=== PATIENT | female | born 1930 | race Two or more races ===

== ENCOUNTER 2017-03-11 10:00 | Outpatient (RCR) ==
--- NOTE | 2017-02-25 16:45 | RS.OPPTEV2 ---
Date of Note: 02/24/17 Visit #: 1 Date of Evaluation: 02/24/17 Payer Source: MEDICARE Treatment Diagnosis: Back pain History of Condition/Mechanism of Injury:: Patient reports a history of back problems. Her daughter describes spinal problems from . States she has episodes to where she gets down in her back and can hardly walk. Functional Limitations: Self Care, ADL's, Sitting, Standing, Ambulation, Community Access/Integration Current Subjective/complaints:: Patient states she has a 86 year old back and she's probably going to have pain. Patient's daughter teases that she (the patient) is here under protest. States she cannot get a CT scan of her spine until she has Physical Therapy. Reports progressive back pain for years. Patient states it is arthritis and degeneration. States standing and walking cause the most pain. She takes a muscle relaxant to sleep at night. Daughter states she has a walker at home, but patient states it is too much trouble to use. Patient reports standing >5-10 mins, her back will be "tied up in knots". States pain is in the center of the low back. She denies any tingling or numbness in the LE's. States she has to sleep on the right side. Reports ADL' s that require standing, such as cooking, are limited. She has to sit to complete many tasks due to increased back pain. Medical History Medical History: Hypertension, Arthritis Smoking Status: Never smoker Hx Home Medications: Protonix, Diclofenac, pravastatin, Meclizine PRN, Acetaminophen Patient's Goals: She wants to have less back pain. Pain Assessment - Pain Description Pain Location: center of low back Pain Description: Aching Current Pain Intensity: not quantified Worst Pain Intensity: not quantified Functional Outcome Measure Oswestry LBP: 58 - G Codes & Severity Modifier G Codes & Modifier: Mobility current CK. Mobility goal CJ Source of G Code score: Oswestry LBP scale. Observation - Observation Posture: Forward Head, Rounded Shoulders, Increased Thoracic Kyphosis, Decreased Lumbar Lordosis, Posterior Pelvic Tilt Gait - Gait Pattern Gait Comments: Patient ambulates without an assistive device independently in the department. Demonstrates a flexed forward posture and guarded mobility. General Range of Motion: Bilateral LE AROM is WFL's. Lumbar AROM is 50% of normal range. Muscle Strength: Bilateral LE strength is grossly 4/5. Trunk strength 4-/5. - Special Tests LISA Test: Negative Left, Negative Right SLR Test: Negative Left, Negative Right Seated Dural Stretch Test: Negative Left, Negative Right SI Joint Compression: Negative SI Joint Distraction: Negative Palpation Comments:: Patient reports no significant tenderness along the lumbar spine or lumbar paraspinals. Denies pain with palpation to the SI joints or with anterior pressure to the sacrum. Sensation - Sensation Right Lower Extremity: Intact/Normal Left Lower Extremity: Intact/Normal Balance - Sitting Balance Static Sitting Balance: Good Dynamic Sitting Balance: Good - Standing Balance Static Standing Balance: Good Dynamic Standing Balance: Fair (+) Additional Comments: Additional Comments: SLR in supine to 60-65 degrees bilaterally. Interventions - Exercise/Activities/Manual Therapy Exercises/Activities: No exercises started today. Discussed the benefit of strengthening exercises for the spine to help improve stability and decrease pain. Manual Therapy: NA - Charges Total Direct Minutes: 50 mins Total Treatment Time: 50 mins Procedures billed for this date of service:: EVAL Low Assessment Assessment: Patient presents to therapy with a diagnosis of back pain. She reports progressive low back pain that is worse with standing and walking. Patient reports no increase or reproduction of pain during the evaluation today. She expresses annoyance with being sent for therapy and does not feel there will be much benefit. She demonstrates potential to benefit from LE and core strengthening to help decrease her pain and improve her tolerance for activities. Patient Education: Education of diagnosis, Body/Joint mechanics, Education of Plan of Care Rehab Potential: Good Short Term Goals Goal #1: Patient compliant and independent in HEP. Goal to be met by: 03/07/17 Goal #2: Trunk strength 4/5. Goal to be met by: 03/11/17 Goal #3: Bilateral hip flexion strength 4+/5. Goal to be met by: 03/11/17 Psychology Professor Goals Goal #1: Pt knows HEP and to continue ex's to maintain functional level at D/C. Goal to be met by: 04/06/17 Goal #2: Score on Oswestry LBP scale improved to 48. Goal to be met by: 04/06/17 Goal #3: Pt to amb. community distances with minimal to mod. low back pain. Goal to be met by: 04/06/17 Goal #4: Pt to tolerate standing to perform ADL's with minimal low back pain. Goal to be met by: 04/06/17 Plan - Treatment to be Provided Procedures: Therapeutic Exercises, Therapeutic Activity, Patient Education Modalities: Hot Packs (prior to exercises if necessary) - Treatment Plan Frequency: 2-3 X week Duration: 4 weeks ORDER # VISITS AND/OR THROUGH DATE: 04/06/17 - Treatment Code (1) Low back pain Qualifiers: Chronicity: chronic Back pain laterality: unspecified Sciatica presence: unspecified whether sciatica present Qualified Description: Chronic low back pain, unspecified back pain laterality, with sciatica presence unspecified Qualifier Code(s): (M54.5) Low back pain, (G89.29) Other chronic pain (2) Impaired mobility and activities of daily living Comments: Z74.09
--- NOTE | 2017-02-26 10:22 | RS.OPPTDN ---
Subjective Date of Note: 02/26/17 Visit #: 2 Date of Evaluation: 02/24/17 Payer Source: MEDICARE Treatment Diagnosis: Back pain Current Subjective/complaints:: Patient reports no pain during exercises. States she doesn't think she needs this. Patient states she and her daughter went to [place] yesterday to shop. States they walked and sat to rest often. Pain Assessment - Pain Description Pain Location: center of low back Pain Description: Aching Current Pain Intensity: not quantified Interventions - Exercise/Activities/Manual Therapy Exercises/Activities: Patient assisted with stretching to bilateral HS and into trunk rotation. Performed exercises of isometric hip flexion, trunk rotation, hip adduction, and hip abduction 2 sets of 5 reps. Performed SLR with light assist, 2 sets of 5 reps each. Total minutes of Exercise: 25 mins Manual Therapy: NA HOME EXERCISE PROGRAM: None given at this time - Charges Total Direct Minutes: 25 mins Total Treatment Time: 25 mins Procedures billed for this date of service:: EX2 Assessment: Patient states again that she doesn't think she needs to be here. She is pleasant and cooperative throughout the exercises. She demonstrates the need for continued strengthening for spinal stabilization. Short Term Goals Goal #1: Patient compliant and independent in HEP. Goal to be met by: 03/07/17 Goal #2: Trunk strength 4/5. Goal to be met by: 03/11/17 Goal #3: Bilateral hip flexion strength 4+/5. Goal to be met by: 03/11/17 Intermediate Goals Goal #1: Pt knows HEP and to continue ex's to maintain functional level at D/C. Goal to be met by: 04/06/17 Goal #2: Score on Oswestry LBP scale improved to 48. Goal to be met by: 04/06/17 Goal #3: Pt to amb. community distances with minimal to mod. low back pain. Goal to be met by: 04/06/17 Goal #4: Pt to tolerate standing to perform ADL's with minimal low back pain. Goal to be met by: 04/06/17 Plan PLAN OF CARE EXPIRES ON:: 04/06/17 ORDER # VISITS AND/OR THROUGH DATE: 04/06/17 PLAN: Progress Exercises
--- NOTE | 2017-03-04 11:13 | RS.OPPTDN ---
Subjective Date of Note: 03/04/17 Visit #: 3 Date of Evaluation: 02/24/17 Payer Source: MEDICARE Treatment Diagnosis: Back pain Current Subjective/complaints:: Patient reports maybe being a slight bit sore after last therapy session. Pain Assessment - Pain Description Pain Location: center of low back Pain Description: Aching Current Pain Intensity: not quantified Interventions - Exercise/Activities/Manual Therapy Exercises/Activities: Patient assisted with stretching to bilateral HS and into trunk rotation. Performed exercises of isometric hip flexion, trunk rotation, hip adduction, and hip abduction 1 set of 10 reps. Performed SLR with light assist, 1 set of 5 reps. Patient reports feeling strain in hips and thighs with SLR---modified SLR to hooklying leg raise. Bridging 2 sets of 5 reps. Controlled lower trunk rotation X 8 reps. Performed bilateral shoulder flexion with 2# wand in hooklying X 10 reps, then 1# wand shoulder flexion with alternate hip flexion w/ 1.5# on each ankle X 10 reps. Added resisted hip abduction with green theraband X 8 reps. Patient instructed in resisted hip abduction, hip flexion isometric, and alternate arm and leg raises in hooklying for HEP. Total minutes of Exercise: X31 mins Manual Therapy: NA HOME EXERCISE PROGRAM: resisted hip abduction, hip flexion isometric, and alternate arm and leg raises in hooklying - Charges Total Direct Minutes: 31 mins Total Treatment Time: 31 mins Procedures billed for this date of service:: EX2 Assessment: Patient tolerates all exercises and is cooperative during therapy. She should benefit from performing exercises at home, along with attending therapy to improved strength along her spine and improve her tolerance with standing activities and walking. Patient Education: Education of diagnosis, Body/Joint mechanics, Home Exercise Program Short Term Goals Goal #1: Patient compliant and independent in HEP. Goal to be met by: 03/07/17 Goal #2: Trunk strength 4/5. Goal to be met by: 03/11/17 Goal #3: Bilateral hip flexion strength 4+/5. Goal to be met by: 03/11/17 Half-Way Goals Goal #1: Pt knows HEP and to continue ex's to maintain functional level at D/C. Goal to be met by: 04/06/17 Goal #2: Score on Oswestry LBP scale improved to 48. Goal to be met by: 04/06/17 Goal #3: Pt to amb. community distances with minimal to mod. low back pain. Goal to be met by: 04/06/17 Goal #4: Pt to tolerate standing to perform ADL's with minimal low back pain. Goal to be met by: 04/06/17 Plan PLAN OF CARE EXPIRES ON:: 04/06/17 ORDER # VISITS AND/OR THROUGH DATE: 04/06/17 PLAN: Continue Plan of Care
--- NOTE | 2017-03-07 16:12 | RS.OPPTDN ---
Subjective Date of Note: 03/07/17 Visit #: 4 Date of Evaluation: 02/24/17 Payer Source: MEDICARE Treatment Diagnosis: Back pain Current Subjective/complaints:: Patient states she has not performed the exercises she was given for HEP on last visit. States she bought a copper back support and feels like it helps her back when walking. Admits that she feels she is able to walk further without as much discomfort, and states this was before buying the support. Pain Assessment - Pain Description Pain Location: center of low back Pain Description: Aching Current Pain Intensity: not quantified Interventions - Exercise/Activities/Manual Therapy Exercises/Activities: Patient assisted with stretching to bilateral HS and into trunk rotation. Performed exercises of isometric hip flexion, trunk rotation, hip adduction, and hip abduction 2 set of 10 reps. Performed SLR with light assist, 2 sets of 5 reps. Bridging 2 sets of 5 reps. Controlled lower trunk rotation X 8 reps. Performed bilateral shoulder flexion with 2# wand in hooklying X 10 reps, then 1# wand shoulder flexion with alternate hip flexion w / 1.5# on each ankle X 10 reps. Performed resisted hip abduction with green theraband 2 sets of 10 reps. Reviewed resisted hip abduction, hip flexion isometric, and alternate arm and leg raises in hooklying for HEP. Total minutes of Exercise: 35 mins Manual Therapy: NA HOME EXERCISE PROGRAM: resisted hip abduction, hip flexion isometric, and alternate arm and leg raises in hooklying - Charges Total Direct Minutes: 35 mins Total Treatment Time: 35 mins Procedures billed for this date of service:: EX2 Assessment: Patient did not try HEP since given to her on her last visit. Explained to her the need for her to work on strengthening consistently, along with attending therapy for the best results. She reluctantly admits that she does feel that she has been able to walk farther without her back bothering her as much. She demonstrates potential to gain increased trunk and and hip strength to provide increased spinal stability to enable her to stand and walk with less pain. Patient demonstrates compliance with HEP?: No Short Term Goals Goal #1: Patient compliant and independent in HEP. Goal to be met by: 03/07/17 Goal #2: Trunk strength 4/5. Goal to be met by: 03/11/17 Goal #3: Bilateral hip flexion strength 4+/5. Goal to be met by: 03/11/17 Progress towards Goal:: Progressing [facility] Goals Goal #1: Pt knows HEP and to continue ex's to maintain functional level at D/C. Goal to be met by: 04/06/17 Goal #2: Score on Oswestry LBP scale improved to 48. Goal to be met by: 04/06/17 Goal #3: Pt to amb. community distances with minimal to mod. low back pain. Goal to be met by: 04/06/17 Progress towards goal: Progressing Goal #4: Pt to tolerate standing to perform ADL's with minimal low back pain. Goal to be met by: 04/06/17 Plan PLAN OF CARE EXPIRES ON:: 04/06/17 ORDER # VISITS AND/OR THROUGH DATE: 04/06/17 PLAN: Progress Exercises Comments:: Will continue to review HEP and progress strengthening exercises.
--- NOTE | 2017-03-11 11:10 | RS.OPPTDN ---
Subjective Date of Note: 03/11/17 Visit #: 5 Date of Evaluation: 02/24/17 Payer Source: MEDICARE Treatment Diagnosis: Back pain Current Subjective/complaints:: Patient reports hurting more with the rainy weather. Describes discomfort running up the to middle back. During sitting exercises, she reports feeling discomfort in the left low back area. States she did her exercises yesterday and the day before that. States the exercises did not cause more pain. Pain Assessment - Pain Description Pain Location: center of low back and up to middle back Pain Description: Aching Current Pain Intensity: not quantified Interventions - Exercise/Activities/Manual Therapy Exercises/Activities: Patient assisted with stretching to bilateral HS and into trunk rotation. Left HS tighter. Had patient demo HEP. Patient performs alternate arm and leg lift with an extended knee. She reports this strains the front of the hip joint. Instructed her to perform a bent knee leg raise, to decrease stress on the hip. Also instructed her to not use momentum by throwing the arm or leg, but move them slowly to effectively strengthen her muscles. She performs the isometric hip flexion and resisted hip abduction with theraband correctly. Performed exercises of isometric trunk rotation, SAQ's with 3#,2 sets of 10 reps. Bridging 1 set of 10 reps. Performed bilateral shoulder flexion with 2# wand in hooklying X 10 reps, then 1# wand shoulder flexion with alternate hip flexion w/ 1.5# on each ankle X 10 reps. Performed resisted hip abduction with green theraband 2 sets of 10 reps. Added exercises in sitting of shoulder flexion with ball X 8 reps (using wand was to difficult due to shoulder limitations/pain). Then patient held the ball in her hands and performed diagonal patterns, 1 set of 5 reps. Manual Therapy: NA HOME EXERCISE PROGRAM: resisted hip abduction, hip flexion isometric, and alternate arm and leg raises in hooklying - Charges Total Direct Minutes: 35 mins Total Treatment Time: 35 mins Procedures billed for this date of service:: EX2 Assessment: Patient reports performing her HEP with her daughter's guidance. She reports more middle back pain today, and more pain overall possibly due to rainy weather. Patient Education: Education of diagnosis, Body/Joint mechanics, Home Exercise Program Patient demonstrates compliance with HEP?: Yes Short Term Goals Goal #1: Patient compliant and independent in HEP. Goal to be met by: 03/07/17 Progress towards Goal:: Progressing Goal #2: Trunk strength 4/5. Goal to be met by: 03/11/17 Progress towards Goal:: Progressing Goal #3: Bilateral hip flexion strength 4+/5. Goal to be met by: 03/11/17 Progress towards Goal:: Progressing [facility] Goals Goal #1: Pt knows HEP and to continue ex's to maintain functional level at D/C. Goal to be met by: 04/06/17 Goal #2: Score on Oswestry LBP scale improved to 48. Goal to be met by: 04/06/17 Goal #3: Pt to amb. community distances with minimal to mod. low back pain. Goal to be met by: 04/06/17 Progress towards goal: Progressing Goal #4: Pt to tolerate standing to perform ADL's with minimal low back pain. Goal to be met by: 04/06/17 Plan PLAN OF CARE EXPIRES ON:: 04/06/17 ORDER # VISITS AND/OR THROUGH DATE: 04/06/17 PLAN: Continue Plan of Care
== END 2017-03-13 ==
PROVIDERS: ATTEND Family Medicine
DX: M54.9 Dorsalgia, unspecified (principal)

== ENCOUNTER 2017-07-14 13:55 | Outpatient (CLI) | END 2017-07-14 13:56 | disposition short-term general hospital (02) | LOC: AMBL 13:55 | PROVIDERS: ATTEND Internal Medicine | DX: R55 Syncope and collapse (principal); R53.1 Weakness; R42 Dizziness and giddiness; I95.9 Hypotension, unspecified; R00.1 Bradycardia, unspecified ==